=== PATIENT | male | born 1970 | race Two or more races ===

== ENCOUNTER 2020-08-15 02:05 | Emergency (ER) | payer MEDICAID ==
[~2020-08-15] VITALS: Ht 152.4 cm; Wt 65.9 kg
[2020-08-15] MEDS ORDERED: PROPARACAINE HCL 0.5% 15 ML OPHTHALMIC SOLUTION OU ONE (02:45)
[2020-08-15] MEDS ORDERED: FLUORESCEIN SODIUM 1 MG STRIP ONE (02:54)
[2020-08-15] MEDS ORDERED: ERYTHROMYCIN 0.5% 3.5 GM TUBE OPHTHALMIC OINTMENT OD ONE (04:15)
[2020-08-15 04:30] VITALS: BP 116/74
== END 2020-08-15 04:31 | disposition home or self-care (01) ==
LOC: EMS 02:05
DX: S05.01XA Injury of conjunctiva and corneal abrasion without foreign body, right eye, initial encounter (principal); F13.10 Sedative, hypnotic or anxiolytic abuse, uncomplicated; Z88.0 Allergy status to penicillin; W22.8XXA Striking against or struck by other objects, initial encounter; Y93.89 Activity, other specified; Y92.89 Other specified places as the place of occurrence of the external cause; Y99.8 Other external cause status

== ENCOUNTER 2021-05-01 13:54 | Emergency (ER) | payer MEDICAID ==
[~2021-05-01] VITALS: Ht 172.7 cm; Wt 67.3 kg
[2021-05-01 16:42] VITALS: BP 132/93
== END 2021-05-01 16:46 | disposition home or self-care (01) ==
LOC: EMS 13:54
DX: K08.89 Other specified disorders of teeth and supporting structures (principal)
CPT/HCPCS: 99283